=== PATIENT | male | born 1940 | race Caucasian/White ===

== ENCOUNTER 2018-12-25 08:25 | Day surgery (SDC) | payer MEDICARE ==
[2018-12-25] MEDS ORDERED: Lidocaine 1% w EPI 1:200,000* SDV 30 ML VIAL ONE (08:56)
[2018-12-25] MEDS ORDERED: Bupivacaine 0.5%* 50 ML MDV VIAL ONE (08:56)
[2018-12-25] MEDS ORDERED: Bacitracin OINTMENT* 0.5% 0.5 oz TUBE ONE (10:39)
[2018-12-25 11:27] VITALS: BP 135/66
--- NOTE | 2018-12-25 13:52 | OP ---
DATE OF OPERATION: 12/25/18 - [facility] DATE OF : 36 SURGEON: Figueroa Reed MD. PRE-OP DIAGNOSIS: Basal cell carcinoma of the left posterior pinna. POST-OP DIAGNOSIS: Basal cell carcinoma of the left posterior pinna. Excision was 2 cm in diameter. OPERATIVE PROCEDURE: Wide local excision of left posterior ear basal cell carcinoma under local anesthesia. DESCRIPTION OF PROCEDURE: The patient was taken to the operating room, placed in a supine position on the operating room table and the ear was prepped with Betadine and injected with 1% lidocaine with 1:100,000 epinephrine. A circumferential incision was made with a 15C blade and then the small tenotomy scissors were used to undermine the skin and remove the lesion. I then did circumferential margins from the ear taking inferior and superior margins and these were negative for carcinoma. Bacitracin was placed. The patient tolerated the procedure well, no complications, transferred to the recovery room in stable condition. [id number] #: [id number] MTDD
== END 2018-12-25 11:28 | disposition home or self-care (01) ==
LOC: OR 08:25
PROVIDERS: ATTEND Otolaryngology
DX: C44.219 Basal cell carcinoma of skin of left ear and external auricular canal (principal); I10 Essential (primary) hypertension; E78.5 Hyperlipidemia, unspecified; Z87.891 Personal history of nicotine dependence
CPT/HCPCS: 88305; 88331; 88332; A9270-GY; J2001; J3490